=== PATIENT | female | born 1990 | race Caucasian/White ===

== ENCOUNTER 2018-04-01 10:25 | Emergency (ER) | payer OTHER ==
[~2018-04-01] VITALS: Ht 157.5 cm; Wt 57.6 kg
== END 2018-04-01 13:40 | disposition home or self-care (01) ==
LOC: ER 10:25
DX: K80.20 Calculus of gallbladder without cholecystitis without obstruction (principal)

== ENCOUNTER 2018-04-03 12:04 | Outpatient (CLI) | payer OTHER | END 2018-04-03 12:08 | disposition home or self-care (01) | LOC: SONOGRAMA 12:04 | DX: N94.89 Other specified conditions associated with female genital organs and menstrual cycle (principal); R10.9 Unspecified abdominal pain; R19.7 Diarrhea, unspecified ==

== ENCOUNTER 2018-04-13 17:29 | Emergency (ER) | payer OTHER ==
[~2018-04-13] VITALS: Ht 157.5 cm; Wt 57.6 kg
== END 2018-04-13 21:10 | disposition home or self-care (01) ==
LOC: ER 17:29
DX: K80.80 Other cholelithiasis without obstruction (principal); N83.291 Other ovarian cyst, right side

== ENCOUNTER → 2018-04-28 | Outpatient (CLI) | payer OTHER | END | disposition home or self-care (01) | LOC: NUCLEAR 07:30 | DX: K80.00 Calculus of gallbladder with acute cholecystitis without obstruction (principal) | CPT/HCPCS: 78227; A9537 ==